=== PATIENT | female | born 1935 | race Hispanic/Latino ===

== ENCOUNTER → 2017-12-22 | Day surgery (SDC) | payer OTHER ==
[2017-12-18 06:53] VITALS: BMI 30.1
[~2017-12-22] MED LIST: Iodixanol 320 MG/ML 100 ML BOTTLE IV ONE; Lidocaine 2% Inj (20ml) ONE; Midazolam 2 MG/2 ML VIAL ONE; Morphine 4 MG/ML VIAL IVP ONE; Nitroglycerin 50mg in D5W 50 MG/250 ML BOTTLE IV SCH
--- NOTE | 2017-12-22 19:54 | CARDCATH ---
PROCEDURE DATE: 12/22/2017 INDICATION: Raisa Machado is an 82-year-old female with past medical history significant for coronary artery disease, status post ND in 2012; status post angioplasty of left anterior descending artery; ischemic cardiomyopathy; recurrent VT, status post BiV-ICD placement, who presented to [facility] with chest pain, episodic, due to coronary syndrome and non-ST elevation ND with troponin peaking at 3.0. She was, therefore, brought to the cardiac chemical lab supervisor for further evaluation and treatment. PROCEDURE PERFORMED: Complete heart catheterization with selective left and right coronary angiogram via right arterial and venous approach. A 6-Croatian right femoral radial arterial access and 7-Croatian right femoral venous access. Manual pressure for hemostasis. TECHNIQUES OF PROCEDURE: After obtaining informed consent, the patient was brought to the cardiac catheterization suite in post-absorptive, non-sedated state. The patient was prepped and draped in the usual sterile fashion. A 2% lidocaine was used for infiltration of anesthesia. Using modified Seldinger technique, a 6-Croatian sheath was introduced into the right femoral artery and 7-Croatian sheath was introduced into the right femoral vein. Subsequently, over a J-wire, JL4 and JR4 diagnostic catheters were used to engage the right and left coronary systems, and angiograms were obtained in different orthogonal views. Subsequently, a pigtail catheter was used to obtain the LV gram in the ARAIZA view. Hemodynamics were obtained and cardiac outflow was calculated. Subsequently, a 7-Croatian pulmonary capillary catheter was advanced serially to the IVC into the RA, RV and PA positions. Hemodynamics and saturations were obtained along with wedge pressures. RIGHT HEART CATH FINDINGS: Right atrial mean pressure is 50 mmHg. RV pressure is 70/20 with EDP of 21. PA pressure is 90/40 with a mean of 55. Pulmonary capillary wedge pressure of 30, left ventricular end-diastolic pressure was 26 mmHg, estimated ejection fraction of 20%. Using the thermodilution method, cardiac output was calculated to be 2.65 liters per minute with a cardiac index of 1.6 liters per minute per square meter area. CORONARY ANATOMY: The left main is a large-sized vessel, bifurcates into LAD and left circumflex coronary artery. Distal left main has severely calcified moderate stenosis, ostial 55% stenosis. Left anterior descending artery is a medium-sized vessel which tapered distally into a small size vessel, gives off a few septal perforators. Left circumflex runs in the AV groove and distally tapered into a small size vessel and gives off a small obtuse marginal branch. Right coronary artery has distal stenosis with co-dominant circulation. IMPRESSION: 1. [id number] diffuse coronary artery disease. 2. Severe pulmonary hypertension. 3. Elevated filling pressure with low cardiac output. RECOMMENDATIONS: The patient would need to be on IV diuretic therapy along with IV inotropic support with milrinone for 48 hours. Re-evaluate hemodynamics and saturations in 48 hours with right heart catheterization finding. Continue guideline-directed therapy for heart failure, nonischemic cardiomyopathy. Hector Silverman MD
== END | disposition left against medical advice (07) ==
LOC: C.CATHLAB 07:27
PROVIDERS: ATTEND Internal Medicine Interventional Cardiology
DX: I21.4 Non-ST elevation (NSTEMI) myocardial infarction (principal); I25.10 Atherosclerotic heart disease of native coronary artery without angina pectoris; I25.2 Old myocardial infarction; I27.20 Pulmonary hypertension, unspecified; I25.5 Ischemic cardiomyopathy; Z95.810 Presence of automatic (implantable) cardiac defibrillator
CPT/HCPCS: 82803; 93460; J1644; J1940; J2250; J2270; J3010; Q9967

== ENCOUNTER 2017-12-31 10:33 | Day surgery (SDC) | payer OTHER ==
[2017-12-18 06:53] VITALS: BMI 30.1
[2017-12-31] MEDS ORDERED: Lidocaine 2% Inj (20ml) ONE (11:14)
[2017-12-31] MEDS ORDERED: Midazolam 2 MG/2 ML VIAL ONE (11:21)
[2017-12-31] MEDS ORDERED: DiphenhydrAMINE 50 mg/ml Inj ONE (11:21)
[2017-12-31 11:52] LABS: VENOUS BLOOD GAS BASE EXCESS 3.4 mmol/L (0.0-2.0); VENOUS BLOOD GAS PCO2 44 mmHg (40-60); VENOUS BLOOD GAS PO2 32 mm/Hg (30-55); VENOUS BLOOD PH 7.42 (7.32-7.43)
--- NOTE | 2017-12-31 13:21 | CARDCATH ---
PROCEDURE DATE: 12/31/2017. INDICATION: Ms. Raisa Machado is an 82-year-old female who was admitted to [facility] last week with nonischemic dilated cardiomyopathy, acute systolic heart failure. The patient underwent a complete heart catheterization last week which showed elevated filling pressures, decreased cardiac output and the patient was in severe decompensated failure. She was initiated on IV milrinone therapy and then subsequently switched to oral phosphodiesterase inhibitors and was subsequently brought back for evaluation of her hemodynamic. Right heart catheterization performed via right femoral venous access. HEMODYNAMICS: RA 7, RV 25/10/11, PA 41/12/26 with a mean PA pressure of 26. Pulmonary capillary wedge pressure mean was 12 mm/Hg. The patient's filling pressure got back to normal. Saturations were sent. Awaiting results for evaluation of cardiac output. The patient's PA 65% consistent with possible normal cardiac output. IMPRESSION: Normal filling pressures, normal cardiac output. RECOMMENDATIONS: Continue diuretic therapy along with phosphodiesterase inhibitors. The patient is responding well to therapy for heart failure. Hector Silverman MD
[2017-12-31 14:32] LABS: VENOUS BLOOD GAS PCO2 42 mmHg (40-60); VENOUS BLOOD GAS PO2 31 mm/Hg (30-55); VENOUS BLOOD PH 7.45 (7.32-7.43)
[2017-12-31 14:33] LABS: VENOUS BLOOD GAS BASE EXCESS 4.7 mmol/L (0.0-2.0)
== END 2017-12-31 13:30 | disposition short-term general hospital (02) ==
LOC: C.CATHLAB 10:33
PROVIDERS: ATTEND Internal Medicine Interventional Cardiology
DX: I42.0 Dilated cardiomyopathy (principal)
CPT/HCPCS: 82803; 93451; 93503; C1714; C1766; C1769; J1200; J1644; J2250